=== PATIENT | female | born 1960 | race Two or more races ===

== ENCOUNTER 2017-05-30 20:36 | Emergency (ER) | payer MEDICAID ==
[~2017-05-30] VITALS: Ht 170.2 cm; Wt 81.6 kg
[2017-05-30 23:00] VITALS: BP 137/56
[2017-05-30] MEDS ORDERED: HYDROcodone-ACET 5/325MG TAB PO ONE (23:45)
== END 2017-05-30 23:48 | disposition home or self-care (01) ==
LOC: ER 20:40
DX: M25.551 Pain in right hip (principal); I10 Essential (primary) hypertension
CPT/HCPCS: 73502

== ENCOUNTER 2021-10-07 18:25 | Inpatient (IN) | payer MEDICAID ==
[~2021-10-07] VITALS: Ht 167.6 cm; Wt 87.7 kg
[2021-10-07] MEDS ORDERED: ADENOSINE 6 MG/2 ML INJ IV ONE (18:45)
[2021-10-07] MEDS ORDERED: dilTIAZem 25 MG/5 ML VIAL IV ONE ×2 (18:51→19:00)
[2021-10-07] MEDS ORDERED: dilTIAZem 125mg/125ml BAG KIT 125 ML IV ONE (19:00)
[2021-10-07 20:00] LABS: Basophils # (auto) 0.1 10 ^3/uL (0-0.2); Basophils % (auto) 0.7 % (0.0-2.0); Eosinophils # (auto) 0.3 10 ^3/uL (0-0.8); Eosinophils % (auto) 2.7 % (0.0-7.0); Hematocrit 43.3 % (36.0-46.0); Hemoglobin 14.7 g/dL (12.2-16.2); Lymphocytes % (auto) 32.3 % (10.0-50.0); Mean Corpuscular Hemoglobin 30.8 pg (28.0-32.0); Mean Corpuscular Hgb Conc. 33.9 g/dL (32.0-36.0); Mean Corpuscular Volume 90.8 fL (80.0-100.0); Monocytes # (auto) 0.8 10 ^3/uL (0-1.3); Monocytes % (auto) 8.3 % (0.0-12.0); Neutrophils # (auto) 5.1 10 ^3/uL (1.6-8.6); Nucleated Red Blood Cells % 0.1 %; Red Blood Cells 4.77 10^6/uL (4.0-5.20); Red Cell Distribution Width 14.3 % (11.8-14.3); White Blood Cell 9.1 10^3/uL (4.4-10.8)
[2021-10-07 20:06] LABS: Albumin 3.4 g/dL (3.4-5.0); BUN/Creatinine Ratio 18.2; Calcium 8.4 mg/dL (8.5-10.1); Magnesium 2.4 mg/dL (1.6-2.6); Potassium 3.1 mmol/L (3.5-5.1)
[2021-10-07 20:11] LABS: Bilirubin, Total 0.4 mg/dL (0.2-1.0); Total Protein 7.1 g/dL (6.4-8.2)
[2021-10-07 20:14] LABS: INR 1.05 (0.9-1.15)
[2021-10-07] MEDS ORDERED: POTASSIUM CHL 20MEQ/100ML 100 ML IV STA (21:01)
[2021-10-07] MEDS ORDERED: ENOXAPARIN SOD 80 MG/0.8ML SYRINGE SC ONE (21:15)
[2021-10-07] MEDS ORDERED: POTASSIUM EFFERVESENT TAB 25 MEQ PO ONE (21:15)
[2021-10-07] MEDS ORDERED: ASPirin 325 MG TAB PO ONE (21:15)
[2021-10-07] MEDS ORDERED: MORPHINE SULFATE INJECTION 2 MG/ML SYRG IV PRN (21:30)
[2021-10-07] MEDS ORDERED: NITROGLYCERIN 0.4 MG SL TAB SL PRN (21:30)
[2021-10-07] MEDS ORDERED: ONDANSETRON HCL 4 MG/2 ML VIAL IV PRN (21:30)
[2021-10-07] MEDS: CARVEDILOL 3.125 MG TAB PO SCH (23:56)
[2021-10-07] MEDS: ATORVASTATIN 20 MG TAB PO SCH (23:57)
[2021-10-08 02:02] LABS: Urine Bacteria NONE SEEN /hpf (None Seen); Urine Blood Negative /uL (Negative); Urine Specific Gravity 1.015 (1.001-1.035); Urine WBC 14 /hpf (0 - 5)
[2021-10-08] MEDS: TEMAZEPAM 15 MG CAP PO PRN (02:19)
[2021-10-08] MEDS: dilTIAZem 125mg/125ml BAG KIT 100 ML IV SCH (07:20)
[2021-10-08 08:25] LABS: Basophils # (auto) 0.1 10 ^3/uL (0-0.2); Basophils % (auto) 0.7 % (0.0-2.0); Eosinophils # (auto) 0.3 10 ^3/uL (0-0.8); Eosinophils % (auto) 3.5 % (0.0-7.0); Hematocrit 43.7 % (36.0-46.0); Hemoglobin 14.2 g/dL (12.2-16.2); Lymphocytes # (auto) 2.3 10 ^3/uL (0.4-5.4); Lymphocytes % (auto) 24.8 % (10.0-50.0); Mean Corpuscular Hemoglobin 30.8 pg (28.0-32.0); Mean Corpuscular Hgb Conc. 32.5 g/dL (32.0-36.0); Mean Corpuscular Volume 94.8 fL (80.0-100.0); Monocytes # (auto) 0.5 10 ^3/uL (0-1.3); Monocytes % (auto) 5.7 % (0.0-12.0); Neutrophils # (auto) 6.1 10 ^3/uL (1.6-8.6); Neutrophils % (auto) 65.3 % (37.0-80.0); Red Blood Cells 4.61 10^6/uL (4.0-5.20); Red Cell Distribution Width 14.4 % (11.8-14.3); White Blood Cell 9.4 10^3/uL (4.4-10.8)
[2021-10-08 08:44] LABS: Potassium 4.9 mmol/L (3.5-5.1)
[2021-10-08 08:49] LABS: Albumin 3.4 g/dL (3.4-5.0); BUN/Creatinine Ratio 16.7; Bilirubin, Total 0.7 mg/dL (0.2-1.0); Calcium 8.6 mg/dL (8.5-10.1); Total Protein 6.8 g/dL (6.4-8.2)
[2021-10-08] MEDS: CARVEDILOL 3.125 MG TAB PO SCH ×2 (09:52→21:40)
[2021-10-08] MEDS: PANTOPRAZOLE 40 MG TAB PO SCH (09:52)
[2021-10-08] MEDS: ASPirin 81 mg TAB PO SCH (09:52)
[2021-10-08] MEDS ORDERED: NIFEdipine ER 30 MG TAB PO SCH (10:00)
[2021-10-08] MEDS ORDERED: ENOXAPARIN SOD 40 MG/0.4 ML SYRINGE SC SCH (10:00)
[2021-10-08] MEDS ORDERED: AMIODARONE HCL (50 MG/ ML) 3 ML VIAL IV ONE (17:29)
[2021-10-08] MEDS ORDERED: AMIODARONE HCL 150 MG in D5W 5% 100 ML IV ONE (17:30)
[2021-10-08] MEDS ORDERED: AMIODARONE 450mg/250ml AE 250 ML IV ONE (17:34)
[2021-10-08] MEDS ORDERED: AMIODARONE 450mg/250ml AE 250 ML IV SCH (17:45)
[2021-10-08] MEDS: ATORVASTATIN 20 MG TAB PO SCH (21:40)
[2021-10-08] MEDS ORDERED: ENOXAPARIN SOD 80 MG/0.8ML SYRINGE SC SCH (22:00)
[2021-10-09] MEDS ORDERED: METOPROLOL TARTRATE 1MG/1ML-5ML VIAL IV PRN ×2 (00:30→23:45)
[2021-10-09] MEDS: dilTIAZem 125mg/125ml BAG KIT 100 ML IV SCH (02:39)
[2021-10-09] MEDS ORDERED: LORazepam 0.5 MG TAB PO ONE (07:30)
[2021-10-09] MEDS ORDERED: AMIODARONE 450mg/250ml AE 250 ML IV SCH (07:45)
[2021-10-09 09:08] LABS: Basophils # (auto) 0 10 ^3/uL (0-0.2); Basophils % (auto) 0.5 % (0.0-2.0); Eosinophils # (auto) 0.3 10 ^3/uL (0-0.8); Eosinophils % (auto) 2.9 % (0.0-7.0); Hematocrit 39.5 % (36.0-46.0); Hemoglobin 13.5 g/dL (12.2-16.2); Lymphocytes % (auto) 20.7 % (10.0-50.0); Mean Corpuscular Hemoglobin 31.2 pg (28.0-32.0); Mean Corpuscular Hgb Conc. 34.2 g/dL (32.0-36.0); Mean Corpuscular Volume 91.3 fL (80.0-100.0); Monocytes # (auto) 0.5 10 ^3/uL (0-1.3); Monocytes % (auto) 5.5 % (0.0-12.0); Neutrophils # (auto) 6.7 10 ^3/uL (1.6-8.6); Neutrophils % (auto) 70.4 % (37.0-80.0); Red Blood Cells 4.33 10^6/uL (4.0-5.20); Red Cell Distribution Width 13.7 % (11.8-14.3); White Blood Cell 9.5 10^3/uL (4.4-10.8)
[2021-10-09 09:12] LABS: BUN/Creatinine Ratio 13.2; Calcium 8.6 mg/dL (8.5-10.1); Magnesium 2.7 mg/dL (1.6-2.6); Potassium 3.7 mmol/L (3.5-5.1)
[2021-10-09] MEDS: APIXABAN 5 MG TAB PO SCH ×2 (09:35→20:52)
[2021-10-09] MEDS: CARVEDILOL 3.125 MG TAB PO SCH ×2 (09:35→20:42)
[2021-10-09] MEDS: ASPirin 81 mg TAB PO SCH (09:35)
[2021-10-09] MEDS: PANTOPRAZOLE 40 MG TAB PO SCH (09:35)
[2021-10-09] MEDS ORDERED: AMIODARONE HCL 200 MG TAB PO SCH (10:00)
[2021-10-09] MEDS: AMIODARONE 450mg/250ml AE 250 ML IV SCH ×2 (14:17→20:28)
[2021-10-09] MEDS ORDERED: CAR125T PO (15:25)
[2021-10-09] MEDS ORDERED: AMIO200T33 PO (15:25)
[2021-10-09] MEDS ORDERED: APIX5TAB PO (15:25)
[2021-10-09] MEDS ORDERED: AMIODARONE HCL 200 MG TAB PO ONE (16:00)
[2021-10-09] MEDS ORDERED: NITROGLYCERIN 0.4 MG SL TAB SL PRN (20:00)
[2021-10-09] MEDS: ATORVASTATIN 20 MG TAB PO SCH (20:42)
[2021-10-09] MEDS: TEMAZEPAM 15 MG CAP PO PRN (20:52)
[2021-10-09] MEDS: MORPHINE SULFATE INJECTION 2 MG/ML SYRG IV PRN (22:13)
[2021-10-10] VITALS (16 sets, daily range): BP systolic 114–147; BP diastolic 58–79
[2021-10-10] MEDS ORDERED: AMIO200T33 PO (04:39)
[2021-10-10] MEDS: MORPHINE SULFATE INJECTION 2 MG/ML SYRG IV PRN (07:27)
[2021-10-10] MEDS ORDERED: dilTIAZem 125mg/125ml BAG KIT 125 ML IV PRN (07:45)
[2021-10-10] MEDS: AMIODARONE HCL 200 MG TAB PO SCH ×3 (08:00→22:07)
[2021-10-10] MEDS ORDERED: AMIODARONE HCL 200 MG TAB PO SCH (10:00)
[2021-10-10] MEDS: ASPirin 81 mg TAB PO SCH (10:00)
[2021-10-10] MEDS: CARVEDILOL 3.125 MG TAB PO SCH ×2 (10:00→22:08)
[2021-10-10] MEDS: PANTOPRAZOLE 40 MG TAB PO SCH (10:30)
[2021-10-10] MEDS: APIXABAN 5 MG TAB PO SCH ×2 (10:30→22:08)
[2021-10-10] MEDS ORDERED: dilTIAZem 25 MG/5 ML VIAL IV ONE (13:15)
[2021-10-10] MEDS: dilTIAZem 125mg/125ml BAG KIT 100 ML IV SCH (13:15)
[2021-10-10] MEDS ORDERED: FUROSEMIDE 20 MG/2 ML VIAL ONE (13:30)
[2021-10-10] MEDS ORDERED: FUROSEMIDE 20 MG/2 ML VIAL IV ONE (13:30)
[2021-10-10] MEDS: ACETAMINOPHEN 325 MG TAB PO PRN (20:44)
[2021-10-10] MEDS: cefTRIAXone 1GM/50ML D5W 50 ML IV SCH (21:22)
[2021-10-10] MEDS: ATORVASTATIN 20 MG TAB PO SCH (22:08)
[2021-10-11] MEDS: AMIODARONE HCL 200 MG TAB PO SCH ×3 (06:09→21:01)
[2021-10-11] MEDS ORDERED: LORazepam 0.5 MG TAB PO PRN (08:30)
[2021-10-11 08:42] LABS: Basophils # (auto) 0.1 10 ^3/uL (0-0.2); Basophils % (auto) 0.8 % (0.0-2.0); Eosinophils # (auto) 0.1 10 ^3/uL (0-0.8); Eosinophils % (auto) 1.3 % (0.0-7.0); Hematocrit 40.7 % (36.0-46.0); Hemoglobin 13.9 g/dL (12.2-16.2); Lymphocytes # (auto) 1.6 10 ^3/uL (0.4-5.4); Lymphocytes % (auto) 15.4 % (10.0-50.0); Mean Corpuscular Hemoglobin 31.1 pg (28.0-32.0); Mean Corpuscular Hgb Conc. 34.2 g/dL (32.0-36.0); Mean Corpuscular Volume 90.9 fL (80.0-100.0); Monocytes # (auto) 0.6 10 ^3/uL (0-1.3); Monocytes % (auto) 6.1 % (0.0-12.0); Neutrophils # (auto) 7.9 10 ^3/uL (1.6-8.6); Neutrophils % (auto) 76.4 % (37.0-80.0); Nucleated Red Blood Cells % 0.1 %; Red Blood Cells 4.47 10^6/uL (4.0-5.20); Red Cell Distribution Width 13.4 % (11.8-14.3); White Blood Cell 10.3 10^3/uL (4.4-10.8)
[2021-10-11 08:55] LABS: Albumin 3.2 g/dL (3.4-5.0); Calcium 8.9 mg/dL (8.5-10.1); Magnesium 2.7 mg/dL (1.6-2.6); Potassium 3.5 mmol/L (3.5-5.1)
[2021-10-11 08:59] LABS: BUN/Creatinine Ratio 14.3; Bilirubin, Total 1.1 mg/dL (0.2-1.0); Total Protein 7.1 g/dL (6.4-8.2)
[2021-10-11] MEDS ORDERED: POTASSIUM CHL 20MEQ/100ML 100 ML IV ONE (09:30)
[2021-10-11] MEDS: dilTIAZem 125mg/125ml BAG KIT 100 ML IV SCH (09:34)
[2021-10-11] MEDS: ASPirin 81 mg TAB PO SCH (09:41)
[2021-10-11] MEDS: PANTOPRAZOLE 40 MG TAB PO SCH (09:42)
[2021-10-11] MEDS: APIXABAN 5 MG TAB PO SCH ×2 (09:42→21:01)
[2021-10-11] MEDS: CARVEDILOL 3.125 MG TAB PO SCH ×2 (09:42→21:01)
[2021-10-11] MEDS ORDERED: AMIODARONE HCL 200 MG TAB PO SCH (14:00)
[2021-10-11] MEDS ORDERED: POTASSIUM CHL 20 Meq TABLET PO ONE (17:30)
[2021-10-11] MEDS: dilTIAZem 120MG ER CAP PO SCH (17:59)
[2021-10-11] MEDS: cefTRIAXone 1GM/50ML D5W 50 ML IV SCH (20:32)
[2021-10-11] MEDS: ATORVASTATIN 20 MG TAB PO SCH (21:00)
[2021-10-11] MEDS: TEMAZEPAM 15 MG CAP PO PRN (21:00)
[2021-10-11 22:00] VITALS: BP 152/83
[2021-10-12] MEDS ORDERED: LISI40TA11 PO (03:19)
[2021-10-12] MEDS ORDERED: ESCI20TA PO (03:19)
[2021-10-12] MEDS ORDERED: NIFE1TAB30 PO (03:19)
[2021-10-12] MEDS ORDERED: ASPI-543 PO (03:19)
[2021-10-12] MEDS ORDERED: ALPR0.25 PO (03:19)
[2021-10-12] MEDS ORDERED: ATOR10TA PO (03:19)
[2021-10-12] MEDS ORDERED: CARV6.2551 PO (03:19)
[2021-10-12] MEDS ORDERED: HYDR25TA4 PO (03:19)
[2021-10-12] MEDS: ACETAMINOPHEN 325 MG TAB PO PRN (04:35)
[2021-10-12 05:30] VITALS: BP 137/68
[2021-10-12 07:18] LABS: Potassium 3.8 mmol/L (3.5-5.1)
[2021-10-12 07:24] LABS: Albumin 2.9 g/dL (3.4-5.0); BUN/Creatinine Ratio 18.7; Bilirubin, Total 0.8 mg/dL (0.2-1.0); Calcium 8.2 mg/dL (8.5-10.1); Magnesium 2.7 mg/dL (1.6-2.6); Total Protein 5.9 g/dL (6.4-8.2)
[2021-10-12 09:00] VITALS: BP 150/78
[2021-10-12] MEDS: ASPirin 81 mg TAB PO SCH (09:31)
[2021-10-12] MEDS: AMIODARONE HCL 200 MG TAB PO SCH ×2 (09:33→18:16)
[2021-10-12] MEDS: CARVEDILOL 3.125 MG TAB PO SCH ×2 (09:33→22:04)
[2021-10-12] MEDS: APIXABAN 5 MG TAB PO SCH ×2 (09:34→22:04)
[2021-10-12] MEDS: PANTOPRAZOLE 40 MG TAB PO SCH (09:34)
[2021-10-12 13:41] VITALS: BP 119/72
[2021-10-12] MEDS ORDERED: ALPRAZolam 0.25 MG TAB PO PRN (16:15)
[2021-10-12 16:31] VITALS: BP 119/70
[2021-10-12] MEDS: cefTRIAXone 1GM/50ML D5W 50 ML IV SCH (21:16)
[2021-10-12 22:00] VITALS: BP 122/82
[2021-10-12] MEDS: dilTIAZem 120MG ER CAP PO SCH (22:03)
[2021-10-12] MEDS: TEMAZEPAM 15 MG CAP PO PRN (22:04)
[2021-10-12] MEDS: ATORVASTATIN 20 MG TAB PO SCH (22:04)
[2021-10-13] MEDS: AMIODARONE HCL 200 MG TAB PO SCH ×3 (01:33→17:46)
[2021-10-13 05:00] VITALS: BP 105/62
[2021-10-13 09:00] VITALS: BP 135/77
[2021-10-13] MEDS: ASPirin 81 mg TAB PO SCH (10:14)
[2021-10-13] MEDS: PANTOPRAZOLE 40 MG TAB PO SCH (10:14)
[2021-10-13] MEDS: APIXABAN 5 MG TAB PO SCH (10:14)
[2021-10-13] MEDS: CARVEDILOL 3.125 MG TAB PO SCH (10:15)
[2021-10-13] MEDS: ACETAMINOPHEN 325 MG TAB PO PRN (10:15)
[2021-10-13 13:00] VITALS: BP 122/82
[2021-10-13 16:42] VITALS: BP 115/72
[2021-10-13 17:00] VITALS: BP 128/80
== END 2021-10-13 18:17 | disposition home or self-care (01) | DRG 201 ==
LOC: EDBD 18:25 → ER 18:28 → TELE 21:26 → TELE-WESTW 10-11 19:54
PROVIDERS: ADMIT Nurse Practitioner; ATTEND Internal Medicine
DX: I48.91 Unspecified atrial fibrillation (principal); I24.8 Other forms of acute ischemic heart disease; Z95.2 Presence of prosthetic heart valve; E87.6 Hypokalemia; R42 Dizziness and giddiness; I47.1 Supraventricular tachycardia; I48.92 Unspecified atrial flutter; F41.9 Anxiety disorder, unspecified; I10 Essential (primary) hypertension; I25.10 Atherosclerotic heart disease of native coronary artery without angina pectoris; I35.0 Nonrheumatic aortic (valve) stenosis; G47.33 Obstructive sleep apnea (adult) (pediatric); Z20.822 Contact with and (suspected) exposure to COVID-19; Z00.6 Encounter for examination for normal comparison and control in clinical research program; Z79.01 Long term (current) use of anticoagulants; Z79.899 Other long term (current) drug therapy
CPT/HCPCS: 36415; 71045; 80048; 80053; 81001; 83735; 83880; 84443; 84484; 85025; 85379; 85610; 87086; 87426; 93005; 93306; 96365; 96366; 96375; 96376; 99291; G0378; J0153; J0696; J3480

== ENCOUNTER 2023-09-29 12:09 | Emergency (ER) | payer MEDICAID ==
[~2023-09-29 12:09] MED LIST: ALPR0.25 PO; AMIO200T33 PO; APIX5TAB PO; ASPI-543 PO; ATOR10TA PO; CAR125T PO; ESCI20TA PO; HYDR25TA4 PO; LISI40TA16 PO; NIFE1TAB30 PO
[2023-09-29 13:18] VITALS: BP 160/84; PULSE 76; RESP 16; TEMP 98.1; O2SAT 96
[2023-09-29] MEDS ORDERED: HYDROcodone-ACET 7.5/325MG TAB PO ONE (15:00)
[2023-09-29] MEDS ORDERED: HYDR-4902 PO (15:08)
[2023-09-29] MEDS ORDERED: CYCL-611 PO (15:08)
== END 2023-09-29 15:09 | disposition home or self-care (01) ==
LOC: ER 12:09 → EDBD 12:09 → ER 15:09
DX: S76.011A Strain of muscle, fascia and tendon of right hip, initial encounter (principal); S96.911A Strain of unspecified muscle and tendon at ankle and foot level, right foot, initial encounter; S80.01XA Contusion of right knee, initial encounter; W18.09XA Striking against other object with subsequent fall, initial encounter; Y93.89 Activity, other specified; Y92.89 Other specified places as the place of occurrence of the external cause; Y99.8 Other external cause status
CPT/HCPCS: 29505; 70450; 72192; 73562; 73630; 93005